=== PATIENT | male | born 1970 | race Caucasian/White ===

== ENCOUNTER 2016-10-18 21:32 | Emergency (ER) | payer OTHER ==
[2016-10-18 23:42] LABS: HEMOGLOBIN 12.5 gm/dl (14.0-17.5); RED BLOOD COUNT 4.11 M/UL (4.20-5.50); WHITE BLOOD COUNT 9.4 K/UL (4.5-11.0)
[2016-10-18 23:57] LABS: BUN/CREATININE RATIO 19 (0-10)
== END 2016-10-19 01:43 | disposition home or self-care (01) ==
LOC: ER1 21:32
PROVIDERS: Physician Assistant
DX: M25.562 Pain in left knee (principal); I10 Essential (primary) hypertension; Z79.82 Long term (current) use of aspirin; Z79.899 Other long term (current) drug therapy; Z91.09 Other allergy status, other than to drugs and biological substances
CPT/HCPCS: 36415; 80048; 85025; 85610; 85730; 96372; 96374; 96375; 96376; 99283; J1650; J2270; J2405

== ENCOUNTER → 2016-10-20 | Outpatient (CLI) | payer OTHER | LOC: US 14:00 | DX: M79.662 Pain in left lower leg (principal); R22.42 Localized swelling, mass and lump, left lower limb | CPT/HCPCS: 93971 ==